=== PATIENT | male | born 1950 | race Caucasian/White ===

== ENCOUNTER 2024-06-14 19:54 | Inpatient (IN) | payer MEDICARE, SELFPAY ==
[2024-06-14 19:54] VITALS: BMI 24.2
[2024-06-14 21:29] VITALS: BP 137/72; PULSE 72; RESP 20; TEMP 36.9; O2SAT 95
--- NOTE | 2024-06-14 21:41 | XR_ITS ---
Examination: Abdomen sonogram, Limited Date and time of exam: June 14, 2024 10:33 PM Indications: Elevated liver function tests on laboratory examination one month ago Technique: Real-time pride scale transabdominal sonographic images of the upper abdomen obtained. Findings: Normal gallbladder. Normal common bile duct 0.4 cm. Pancreatic head 2.8 cm Liver enlarged 18.8 cm with vascular right lobe liver lesion 16.5 x 15.3 x 16.9 cm Normal hepatopedal portal venous flow Patent IVC Impression: Normal gallbladder Recommend MRI abdomen liver follow-up to assess large right lobe liver lesion
--- NOTE | 2024-06-14 21:41 | PD.EDRME ---
Rapid Medical Screening Exam RME Arrival date/time: 06/14/24 19:54 74 year old male present to ED for c/o of abnormal labs. low hgb and elevated liver enzyme I have greeted and performed a focused initial assessment of this patient. A comprehensive ED assessment and evaluation of the patient, analysis of all test results, and completion of the medical decision making process will be conducted by additional ED providers. Chief Complaint: Recheck/Abnormal Lab/Rx Time Seen by Provider: 06/14/24 21:17 Vital signs: Vital Signs Temperature 98.4 F 06/14/24 21:29 Pulse Rate 72 06/14/24 21:29 Respiratory Rate 20 06/14/24 21:29 Blood Pressure 137/72 H 06/14/24 21:29 Pulse Oximetry (%) 95 06/14/24 21:29 Oxygen Delivery Method Room Air 06/14/24 21:29
[2024-06-14 22:12] LABS: Basophils # (Auto) 0.1 Thou/mm3 (0.0-0.2); Basophils % (Auto) 1 % (0-2.5); Eosinophils # (Auto) 0.4 Thou/mm3 (0.0-0.5); Eosinophils % (Auto) 4 % (0-10); Immature Granulocytes % (Auto) 1 % (0-0); Immature Granulocytes Auto 0.13 Thou/mm3 (0.00-0.00); Lymphocytes # (Auto) 1.6 Thou/mm3 (1.0-4.8); Lymphocytes % (Auto) 18 % (10-50); Mean Corpuscular HGB Conc 30.5 g/dl (31.0-37.0); Mean Corpuscular Hemoglobin 22.7 pg (25.0-35.0); Mean Corpuscular Volume 75 fL (80-100); Monocytes # (Auto) 0.6 Thou/mm3 (0.0-0.8); Monocytes % (Auto) 6 % (0-12); Neutrophils # (Auto) 6.3 Thou/mm3 (1.8-7.7); Neutrophils % (Auto) 70 % (37-80); Nucleated Red Blood Cell % 0 /100 WBC (0); Platelet Count 463 Thou/mm3 (140-440); RDW Standard Deviation 50.8 fL (35.1-43.9); Red Blood Count 2.82 Miln/mm3 (4.50-5.90)
[2024-06-14 22:28] LABS: Hemoglobin 6.4 g/dL (13.5-16.0)
[2024-06-14 22:35] LABS: INR 1.2 (0.9-1.3); Prothrombin Time 12.6 Seconds (9.0-12.2)
[2024-06-14 22:47] LABS: Alanine Aminotransferase 57 U/L (10-49); Albumin/Globulin Ratio 1.5 (1.2-2.2); Alkaline Phosphatase 697 U/L (46-116); Anion Gap 11 (7-16); Aspartate Amino Transferase 77 U/L (0-34); BUN/Creatinine Ratio 32 Ratio (12-20); Bilirubin,Total 0.4 mg/dL (0.3-1.2); Blood Urea Nitrogen 81 mg/dL (9-23); Calcium 10.4 mg/dL (8.3-10.6); Calcium (Corrected) 10.4 mg/dL (8.5-10.1); Carbon Dioxide 17.1 mMol/L (20.0-31.0); Chloride 110 mMol/L (98-107); Creatinine (Component) 2.5 mg/dL (0.6-1.3); Globulin 3.4 gm/dL (2.3-3.5); Glucose 104 mg/dL (74-106); Lipase 122 U/L (12-53); Osmolality,Calculated 300 (275-295); Potassium 5.9 mMol/L (3.4-5.1); Sodium 138 mMol/L (136-145); Total Protein 8.4 gm/dL (5.7-8.2); eGFR 26 See Note
[2024-06-15] VITALS (19 sets, daily range): BP systolic 124–170; BP diastolic 60–101; PULSE 60–72; RESP 15–100; TEMP 36.2–37.2; O2SAT 65–100; BMI 24.2
--- NOTE | 2024-06-15 | XR_ITS ---
MRI abdomen, without contrast. MRCP Date and time of exam: June 15, 2024 0809 hours INDICATIONS: Elevated alkaline phosphatase on laboratory examination performed one month ago Technique: Multiple axial and coronal images of the abdomen have been obtained with the Siemens 1.5T MRI scanner. Images obtained included T1 weighted transverse images, T2-weighted transverse images, T2-weighted transverse images fat-suppressed, T2 weighted haste fat suppressed transverse images, T1 weighted images, in and out of phase images, T2-weighted coronal images, breath hold, T2 weighted haze coronal images as well as T2 weighted coronal thick slab images, MRCP. Findings: Cirrhosis, liver nodular in contour The right lobe of the liver is replaced by a large irregular heterogeneous signal mass at least 15 x 17 cm There is no diagnostic visualization of the extrahepatic biliary system The spleen is not enlarged No pancreatic mass or dilated pancreatic duct No hydronephrosis Small gallstones, gallbladder wall is not thickened No hydronephrosis No ascites IMPRESSION: Cirrhosis The right lobe of the liver is replaced by large irregular mass at least 15 x 17 cm, differential would include primary hepatocellular carcinoma, hepatic metastasis
--- NOTE | 2024-06-15 01:23 | EDNOTE_ITS ---
ED Recheck Abnl Lab Rx-RME/HPI General Chief Complaint: Recheck/Abnormal Lab/Rx Stated Complaint: SENT BY PCP FOR ABN LABS Time Seen by Provider: 06/14/24 21:17 Arrival date/time: 06/14/24 19:54 RME / HPI RME / HPI narrative: 06/14/24 19:54 74 year old male present to ED for c/o of abnormal labs. low hgb and elevated liver enzyme I have greeted and performed a focused initial assessment of this patient. A comprehensive ED assessment and evaluation of the patient, analysis of all test results, and completion of the medical decision making process will be conducted by additional ED providers. Dr. Penn?s Main ED Evaluation: 74yo male with a history of dementia, HTN presents to the ED for a chief complaint of abnormal labs. Patient states he gets frequent nose bleeds every 5 days. Patient states he was told today that his hemoglobin was low and his LFTs are elevated, so he came in for evaluation. Patient reports having nausea, brain fog , and a decreased appetite. Patient denies any hematemesis, bloody/black stools or any other associated symptoms. Related Data Home Medications ?Medication ?Instructions ?Recorded ?Confirmed chlorthalidone 50 mg tablet 50 mg PO QDAY 06/16/24 ergocalciferol (vitamin D2) 1,250 1,250 mcg PO QWEEK 0 06/16/24 06/16/24 mcg (50,000 unit) capsule losartan 100 mg tablet 100 mg PO QDAY 06/16/2405/26 memantine 10 mg tablet 10 mg PO HS 06/16/24 5 nifedipine 30 mg tablet,extended 30 mg PO QDAY 5 06/16/24 release trazodone 100 mg tablet 100 mg PO HS 06/16/24 Allergies Allergy/AdvReac Type Severity Reaction Status Date / Time No Known Allergies Allergy Verified 06/14/24 19:56 Review of Systems Review of Systems Systems Reviewed: All systems reviewed, normal except as documented ED Exam Narrative Physical exam: GENERAL APPEARANCE: alert and oriented x 4, well-developed, well-nourished, no acute distress VITALS: All vitals were reviewed and the pulse ox is 100% on room air, which is normal according to my interpretation. HEENT: Normocephalic, atraumatic; pupils equal, round, reactive to light; EOMI; mucous membranes pink, moist; oropharynx clear NECK: Supple LUNGS: CTABL; no wheezes, no rales, no rhonchi HEART: Regular rate, regular rhythm; normal S1, S2; no murmurs ABDOMEN: non distended; normal BS; soft, no tenderness, no guarding, no rebound; no masses, no organomegaly, no hernia BACK: no CVA tenderness EXTREMITIES: atraumatic; no edema NEUROLOGIC: awake; alert and oriented x4; cranial nerves II-XII grossly intact; no focal sensory or motor deficits PSYCHIATRIC: appropriate mood and affect SKIN: warm, dry, normal color; no rashes Course Quality Measures none Orders Category Date Time Status COVID-19 Screening Questionnaire NOW Care 06/15/24 10:51 Active User Experience Lead Q4H START 00 Care 06/15/24 01:26 Completed Continuous Pulse Oximetry NOW Care 06/15/24 01:26 Completed Decision to Admit X1 Care 06/15/24 10:51 Completed EKG (ED ONLY) *Do not use* NOW Care 06/15/24 10:56 Completed MRI Screening NOW Care 06/15/24 01:25 Active Transfuse,blood/blood products ONCE Care 06/15/24 00:04 Active EKG (ED Only) Stat Exams 06/15/24 10:56 Draft MR MRCP Stat Exams 06/15/24 Completed US abdomen limited Stat Exams 06/14/24 21:41 Completed CBC Stat Lab 06/14/24 21:50 Completed CBC Stat Lab 06/15/24 11:12 Completed CMP [Comprehensive Metabolic Panel] Stat Lab 06/14/24 21:50 Completed CMP [Comprehensive Metabolic Panel] Stat Lab 06/15/24 11:12 Completed Lipase Stat Lab 06/14/24 21:50 Completed Path Review Blood Smear Stat Lab 06/14/24 21:50 Completed Prothrombin Time with INR Stat Lab 06/14/24 21:50 Completed Type and Screen Stat Lab 06/14/24 21:50 Results prbc [Red Blood Cells] Stat Lab 06/15/24 00:04 Results Vital Signs Vital signs: Vital Signs Temperature 98.4 F 06/14/24 21:29 Pulse Rate 72 06/14/24 21:29 Respiratory Rate 20 06/14/24 21:29 Blood Pressure 137/72 H 06/14/24 21:29 Pulse Oximetry (%) 95 06/14/24 21:29 Oxygen Delivery Method Room Air 06/14/24 21:29 Recheck / Abnormal Lab / Rx MDM Narrative MDM Narrative:: Scribe Attestation: 06/15/24 - Rhonda Moncada am scribing for and in the presence of Dr. Penn. The patient was placed in ED observation care at 06/15/24 at 0230 hours. The patient was placed in ED observation care because of pending blood transfusion and MRCP in the AM. The patients past medical history, social history, and family history were reviewed. 0600: Care signed out to Dr. Cannon (emergency physician). Past medical, surgica l, social and family history reviewed. Vitals and home medications reviewed. Results and treatment plan discussed. They will assume the care of the patient at this time and will follow the patient, pending MRCP and completion of blood transfusion. At this time, observation has ended. Patient data External records reviewed:: [facility] previous records (Per chart review, patient has no previous ED visits or admissions to this facility.) Clinical information provided by:: patient Social determinants that could affect healthcare access:: none Patient has the following chronic illnesses:: dementia, HTN How is presenting disease/condition affected by chronic disease/condition?: uneffected by Evaluation data The following diagnostics were reviewed and interpreted by me:: lab results and radiology exam(s) Lab and/or radiology exams considered but not ordered:: none Interpretation Summary: WBC count is normal, HnH is low at 6.4/21.0, Potassium is elevated at 5.9, Creatinine is elevated at 2.5, LFTs are elevated, Lipase is 122, according to my interpretation. -------- [place] [facility] Report Signed Patient: DENZEL PEARCE [facility]. Record#: [id number] Birthdate: 1950 Age/Sex: 74 / M Location: [facility] Attending Dr: Ordering Physician: Ranjeet George PA-C Date of Service: 06/14/24 Procedure(s): US abdomen limited Accession Number(s): [id number] cc: iSmone Khan MD; NO PRIMARY/FAMILY,PHYSICIAN; Ranjeet Geogre PA-C~ Examination: Abdomen sonogram, Limited Date and time of exam: June 14, 2024 10:33 PM Indications: Elevated liver function tests on laboratory examination one month ago Technique: Real-time pride scale transabdominal sonographic images of the upper abdomen obtained. Findings: Normal gallbladder. Normal common bile duct 0.4 cm. Pancreatic head 2.8 cm Liver enlarged 18.8 cm with vascular right lobe liver lesion 16.5 x 15.3 x 16.9 cm Normal hepatopedal portal venous flow Patent IVC Impression: Normal gallbladder Recommend MRI abdomen liver follow-up to assess large right lobe liver lesion Dictated By: Simone Khan MD Signed By: <Electronically signed by Simone Khan MD in [place]> 06/14/24 9508 Medications / Prescriptions Medications or Prescriptions considered but not ordered:: none Medication administrations:: Medication Administration History Acetaminophen (Acetaminophen 325 Mg Tablet) 650 mg PO Q6H PRN PRN Reason: Fever >100.3 or pain Stop: 07/15/24 13:18 Sodium Chloride (Ns) 1,000 mls @ 80 mls/hr IV .[id number] ONE Stop: 06/16/24 04:43 Last Admin: 06/15/24 17:38 Dose: 80 mls/hr Documented By: TM Labetalol HCl (Labetalol Inj 5 Mg/Ml Vial 20 Ml) 10 mg IVP Q4H PRN PRN Reason: Hypertension Stop: 07/15/24 15:10 Nifedipine (Nifedipine Xl 30 Mg Tabcr) 30 mg PO DAILY [facility] Stop: 07/15/24 15:14 Last Admin: 06/15/24 17:37 Dose: 30 mg Documented By: TM Ondansetron HCl (Ondansetron Inj 2 Mg/Ml Inj 2 Ml) 4 mg IV Q6H PRN; Protocol PRN Reason: NAUSEA OR VOMITING Stop: 07/15/24 13:18 Pantoprazole Sodium (Pantoprazole 40 Mg Tablet) 40 mg PO QDAY LAUREANO Stop: 07/15/24 15:14 Last Admin: 06/15/24 17:37 Dose: 40 mg Documented By: TM Sennosides (Senna Tablet) 1 tab PO QDAY PRN; Protocol PRN Reason: constipation Stop: 07/15/24 13:18 see above, if any Consultations Consultation(s) initiated? (list below): No Diagnosis Recheck Differential Diagnosis: other (See above) Most likely diagnosis given after review of the tests above:: final dx pending at sign out Admission Indicated Admission indicated?: not indicated Admission Request Was there a request for admission?: No Disposition Plan Disposition Plan: other (specify) (Signed out to Dr. Cannon at 0600 pending MRCP and completion of blood transfusion.) Discharge Plan Plan Patient Disposition: Admit Acute Care w/in Hospital Problem List Clinical Impression: Liver mass, Anemia, Elevated LFTs, Hyperkalemia, NATALIE (acute kidney injury)
[2024-06-15 03:26] LABS: Path Review Blood Smear Sent to Pathologist
--- NOTE | 2024-06-15 06:22 | PD.EDADDENDU ---
Emergency Room Addendum Addendum Narrative: 0600: Care assumed from Dr. Penn, the previous shift emergency physician. Past medical, surgical, social and family history reviewed. Vitals and home medications reviewed. I will assume the care of the patient at this time, pending MRCP and completion of blood transfusion. Please refer to the emergency department record for history and examination from initial visit.? Physical exam by me shows patient under no acute distress at this time. 1319: Discussed test HPI, PMHx, lab, radiology results and/or management with hospitalist. Will admit for further evaluation and management. Accepts patient for admission. Diagnoses: - Large irregular liver mass - Severe anemia - Hyperkalemia - NATALIE RADIOLOGY Procedure(s): MR MRCP Accession Number(s): [id number] cc: Simone Khan MD; NO PRIMARY/FAMILY,PHYSICIAN; David Penn MD~ MRI abdomen, without contrast. MRCP Date and time of exam: June 15, 2024 0809 hours INDICATIONS: Elevated alkaline phosphatase on laboratory examination performed one month ago Technique: Multiple axial and coronal images of the abdomen have been obtained with the Siemens 1.5T MRI scanner. Images obtained included T1 weighted transverse images, T2-weighted transverse images, T2-weighted transverse images fat-suppressed, T2 weighted haste fat suppressed transverse images, T1 weighted images, in and out of phase images, T2-weighted coronal images, breath hold, T2 weighted haze coronal images as well as T2 weighted coronal thick slab images, MRCP. Findings: Cirrhosis, liver nodular in contour The right lobe of the liver is replaced by a large irregular heterogeneous signal mass at least 15 x 17 cm There is no diagnostic visualization of the extrahepatic biliary system The spleen is not enlarged No pancreatic mass or dilated pancreatic duct No hydronephrosis Small gallstones, gallbladder wall is not thickened No hydronephrosis No ascites IMPRESSION: Cirrhosis The right lobe of the liver is replaced by large irregular mass at least 15 x 17 cm, differential would include primary hepatocellular carcinoma, hepatic metastasis Dictated By: Simone Khan MD
--- NOTE | 2024-06-15 07:35 | PC.NURSE ---
Upon assumption of care pt reports that he is feeling much better, denies any pain or discomfort. VSS will continue w/POC.
--- NOTE | 2024-06-15 08:02 | PC.NURSE ---
To MRI at this time
--- NOTE | 2024-06-15 08:39 | PC.NURSE ---
Pt back from MRI at this time
--- NOTE | 2024-06-15 10:56 | EKG_ITS ---
[facility] Test Date: 2024-06-15 Pat Name: DENZEL PEARCE Department: Room: - Gender: Male Contracts Specialist: : 1950 Requested By: Waqas Solorio Order Number: [id number] Reading MD: Waqas Solorio Measurements Intervals [place] Rate: 68 P: 22 MI: 154 QRS: -9 QRSD: 102 T: -4 QT: 384 QTc: 409 Interpretive Statements SINUS RHYTHM WITH MARKED SINUS ARRHYTHMIA MINIMAL VOLTAGE CRITERIA FOR LVH, CONSIDER NORMAL VARIANT [MEETS CRITERIA IN ONE OF: R(aVL), S(V1), R(V5), R(V5/V6)+S(V1)] MODERATE ST DEPRESSION [0.05+ mV ST DEPRESSION] No previous ECG available for comparison /store/S0/[id number]/ecg/[id number].pdf
[2024-06-15 11:29] LABS: Basophils # (Auto) 0.1 Thou/mm3 (0.0-0.2); Basophils % (Auto) 1 % (0-2.5); Eosinophils # (Auto) 0.3 Thou/mm3 (0.0-0.5); Eosinophils % (Auto) 5 % (0-10); Hematocrit 25.7 % (41.0-53.0); Immature Granulocytes % (Auto) 1 % (0-0); Lymphocytes # (Auto) 1.2 Thou/mm3 (1.0-4.8); Lymphocytes % (Auto) 17 % (10-50); Mean Corpuscular HGB Conc 30.7 g/dl (31.0-37.0); Mean Corpuscular Hemoglobin 24.8 pg (25.0-35.0); Mean Corpuscular Volume 81 fL (80-100); Monocytes # (Auto) 0.6 Thou/mm3 (0.0-0.8); Monocytes % (Auto) 8 % (0-12); Neutrophils # (Auto) 5.1 Thou/mm3 (1.8-7.7); Neutrophils % (Auto) 68 % (37-80); Nucleated Red Blood Cell # 0.02 Thou/mm3 (0.00-0.00); Nucleated Red Blood Cell % 0 /100 WBC (0); Platelet Count 342 Thou/mm3 (140-440); RDW Standard Deviation 58.6 fL (35.1-43.9); Red Blood Count 3.19 Miln/mm3 (4.50-5.90); White Blood Count 7.4 Thou/mm3 (3.8-10.6)
[2024-06-15 11:58] LABS: Alanine Aminotransferase 53 U/L (10-49); Albumin, Serum 4.5 gm/dL (3.4-4.8); Albumin/Globulin Ratio 1.4 (1.2-2.2); Alkaline Phosphatase 599 U/L (46-116); Anion Gap 8 (7-16); Aspartate Amino Transferase 79 U/L (0-34); BUN/Creatinine Ratio 34 Ratio (12-20); Bilirubin,Total 0.7 mg/dL (0.3-1.2); Blood Urea Nitrogen 72 mg/dL (9-23); Calcium 9.9 mg/dL (8.3-10.6); Calcium (Corrected) 9.9 mg/dL (8.5-10.1); Carbon Dioxide 16.6 mMol/L (20.0-31.0); Chloride 110 mMol/L (98-107); Creatinine (Component) 2.1 mg/dL (0.6-1.3); Estimated Creatinine Clearance 27.4 mL/min (>60); Globulin 3.2 gm/dL (2.3-3.5); Glucose 88 mg/dL (74-106); Osmolality,Calculated 290 (275-295); Potassium 5.2 mMol/L (3.4-5.1); Sodium 135 mMol/L (136-145); Total Protein 7.7 gm/dL (5.7-8.2); eGFR 32 See Note
[2024-06-15 12:08] LABS: Hemoglobin 7.9 g/dL (13.5-16.0)
--- NOTE | 2024-06-15 13:32 | XR_ITS ---
Examination: CT brain head without contrast. 2-D sagittal coronal reconstructions Date and time of exam:June 20, 2024 1839 hrs. Indications: Diagnosis of hepatocellular carcinoma, altered mental status, staging for cerebral metastases CTDI: vol (mGy):51.5 DLP: (mGycm):1055 Technique: Multiple CT axial sections of the brain have been obtained, 5 mm slice thickness. Contrast has not been administered. 2-D sagittal, coronal reconstructions have been obtained Low dose protocols were performed. One or more of the following dose reduction techniques were used; automated exposure control, adjustment of the mA and/or KV according to patient size, use of iterative reconstruction technique. Findings: No significant ventricular enlargement. Chronic frontal subdural hygromas, 17 mm in thickness on the right side, 6 mm in thickness on the left side at the level of the ventricles No acute hemorrhage No mass effect No cerebral edema Intra-axial or extra-axial hemorrhage density is not seen. No mass effect or midline shift Basal cisterns are not remarkable. Fourth ventricle is midline. Cranial vault intact. Impression: Negative for acute hemorrhage, mass effect or midline shift No focal cerebral edema, however, MRI of brain pre and post contrast follow-up would best assess for early cerebral metastatic disease
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
[2024-06-15] MEDS: NIFEdipine XL 30 MG TABCR PO (17:37)
[2024-06-15] MEDS: PANTOPRAZOLE 40 MG TABLET PO (17:37)
[2024-06-15] MEDS: SODIUM CHLORIDE 0.9% 1000 ML 1,000 ML 80 ML IV (17:38)
--- NOTE | 2024-06-15 18:28 | PC.NURSE ---
SPOKE W/MD WHITE ABOUT 2 ADDITIONAL UNITS THAT HE ORDERED PRIOR TO POST TRANSFUSION HGB RESULTS THAT WERE 7.9. SAID THEY DO NOT NEED THE BLOOD W/THAT HGB.
--- NOTE | 2024-06-15 21:11 | PD.IMCONS ---
HPI Data of Consult Requesting Physician: Leonard Ren MD Primary Care Provider: Physician No Primary/Family Consult Narrative Reason for consult: H/H 6.4/21.0 History of present illness: 74 female brought into the emergency room by the family for not feeling well did not have much of a specific complaint He was found to have a hemoglobin hematocrit 6.4 and 21.0 with a platelet count of 463,000 No history of any sally GI bleeding Abdominal ultrasound showed a liver mass which was confirmed by MRCP which showed the whole right lobe of the liver is replaced by a 15 x 17 cm mass LFTs shows a total bilirubin of 0.7 AST ALT 70 and 53 and alk phos of 599 Patient does have a history of essential hypertension and underlying dementia cc:: cc: Leonard Ren MD Review of Systems Review of Systems ROS Unobtainable: unobtainable due to medical condition Past Medical History Surgical History OTHER SURGICAL HX: As in the history of present illness Meds Home Medications and Allergies Allergies Allergy/AdvReac Type Severity Reaction Status Date / Time No Known Allergies Allergy Verified 06/14/24 19:56 Exam Vital Signs Temp Pulse Resp BP Pulse Ox O2 Del Method 98.0 F 65 18 168/69 H 98 Room Air 06/15/24 18:23 06/15/24 18:23 06/15/24 18:23 06/15/24 18:23 06/15/24 18:23 06/15/24 18:23 Constitutional Comments: Chronically ill-appearing Routine Respiratory Exam Comments: Normal to auscultation Routine Abdominal Exam Comments: Right upper quadrant fullness positive bowel sounds Results Labs 06/15/24 11:12 06/15/24 11:12 Labs: Short CBC 06/14/24 06/15/24 Range/Units 21:50 11:12 WBC 9.0 7.4 (3.8-10.6) Thou/mm3 Hgb 6.4 L* 7.9 L D (13.5-16.0) g/dL Hct 21.0 L* 25.7 L (41.0-53.0) % Plt Count 463 H 342 D (140-440) Thou/mm3 BMP 06/14/24 06/15/24 21:50 11:12 Sodium 138 135 L Potassium 5.9 H 5.2 H D Chloride 110 H 110 H Carbon Dioxide 17.1 L 16.6 L BUN 81 H 72 H Creatinine 2.5 H 2.1 H Glucose 104 88 Calcium 10.4 9.9 Liver Function 06/14/24 06/15/24 Range/Units 21:50 11:12 Total Bilirubin 0.4 0.7 (0.3-1.2) mg/dL AST 77 H 79 H (0-34) U/L ALT 57 H 53 H (10-49) U/L Alkaline Phosphatase 697 H 599 H D (46-116) U/L Albumin 5.0 H 4.5 D (3.4-4.8) gm/dL Assessment and Plan Additional Assessment & Plan Additional Plan: # Anemia most likely anemia blood loss Agree with the blood transfusion Consent obtained for fiberoptic esophagogastroduodenoscopy with possible biopsy possible therapeutic intervention under intravenous moderate sedation Scheduled for tomorrow Clear liquid diet till 10 AM tomorrow then n.p.o. except p.o. meds # Right lobe liver mass primary hepatocellular carcinoma versus metastatic disease AFP CEA level CA 19?9 level Ultrasound-guided biopsy of the liver mass prior to discharge Oncology on board # Dementia Thank you very much for the opportunity to participate in the care of this patient
--- NOTE | 2024-06-15 21:51 | PC.NURSE ---
seen and examined by Dr. Ovidio plaza/ orders made and carried out.
[2024-06-15 23:17] LABS: Carcinoembryonic Antigen 2.4 ng/mL (0.0-5.0)
[2024-06-16] VITALS (26 sets, daily range): BP systolic 109–150; BP diastolic 61–75; PULSE 51–70; RESP 12–99; TEMP 36.2–36.9; O2SAT 94–100; BMI 24.0
[2024-06-16 06:27] LABS: Basophils # (Auto) 0.1 Thou/mm3 (0.0-0.2); Basophils % (Auto) 1 % (0-2.5); Eosinophils # (Auto) 0.4 Thou/mm3 (0.0-0.5); Eosinophils % (Auto) 6 % (0-10); Immature Granulocytes % (Auto) 1 % (0-0); Immature Granulocytes Auto 0.06 Thou/mm3 (0.00-0.00); Lymphocytes # (Auto) 1.2 Thou/mm3 (1.0-4.8); Lymphocytes % (Auto) 17 % (10-50); Mean Corpuscular HGB Conc 30.8 g/dl (31.0-37.0); Mean Corpuscular Volume 81 fL (80-100); Monocytes # (Auto) 0.6 Thou/mm3 (0.0-0.8); Monocytes % (Auto) 8 % (0-12); Neutrophils # (Auto) 5.1 Thou/mm3 (1.8-7.7); Neutrophils % (Auto) 69 % (37-80); Nucleated Red Blood Cell % 0 /100 WBC (0); Platelet Count 343 Thou/mm3 (140-440); RDW Standard Deviation 60.6 fL (35.1-43.9); White Blood Count 7.5 Thou/mm3 (3.8-10.6)
[2024-06-16 07:15] LABS: Alanine Aminotransferase 55 U/L (10-49); Albumin, Serum 4.4 gm/dL (3.4-4.8); Albumin/Globulin Ratio 1.4 (1.2-2.2); Alkaline Phosphatase 648 U/L (46-116); Anion Gap 13 (7-16); Aspartate Amino Transferase 95 U/L (0-34); BUN/Creatinine Ratio 32 Ratio (12-20); Bilirubin,Total 0.5 mg/dL (0.3-1.2); Blood Urea Nitrogen 61 mg/dL (9-23); Calcium 9.5 mg/dL (8.3-10.6); Calcium (Corrected) 9.5 mg/dL (8.5-10.1); Cardiac Risk Estimate 4.3 RATIO (4.0-6.7); Chloride 114 mMol/L (98-107); Cholesterol 111 mg/dL (132-200); Creatinine (Component) 1.9 mg/dL (0.6-1.3); Estimated Creatinine Clearance 30.3 mL/min (>60); Globulin 3.2 gm/dL (2.3-3.5); Glucose 93 mg/dL (74-106); HDL Cholesterol 26 mg/dL (40-60); LDL Cholesterol,Calculated 64 mg/dL (0-130); Magnesium 2.2 mg/dL (1.6-2.6); Osmolality,Calculated 298 (275-295); Phosphorous 4.7 mg/dL (2.4-5.1); Potassium 5.2 mMol/L (3.4-5.1); Sodium 141 mMol/L (136-145); Thyroid Stimulating Hormone 2.44 uIU/mL (0.55-4.78); Total Protein 7.6 gm/dL (5.7-8.2); Triglycerides 104 mg/dL (30-150); eGFR 36 See Note
[2024-06-16 07:23] LABS: Carbon Dioxide 13.8 mMol/L (20.0-31.0)
--- NOTE | 2024-06-16 07:27 | PC.NURSE ---
MD called to report CO2 critically low lab, MD is responding to Rapid response and told RN they will return call, no new orders.
[2024-06-16] MEDS: SODIUM BICARBONATE 650 MG TABLET 325 MG PO ×2 (08:33→20:16)
[2024-06-16] MEDS: PANTOPRAZOLE 40 MG TABLET PO ×2 (08:33→20:16)
[2024-06-16] MEDS: NIFEdipine XL 30 MG TABCR PO (08:33)
[2024-06-16] MEDS: SOD POLYSTYRENE SULFON SUSP 15 GM/60 ML BTL 30 GM PO (09:38)
--- NOTE | 2024-06-16 12:20 | PC.NURSE ---
Pt. taken to custodial laborer, via milla with staff.
--- NOTE | 2024-06-16 13:02 | XR_ITS ---
Examination: CT-guided percutaneous biopsy right lobe liver lesion CT abdomen without intravenous contrast Date and time of procedure: June 16, 2024 1346 hours INDICATIONS: 15 x 17 mm vascular mass replacing the right lobe of the liver on MR CP June 15, 2024 Informed consent provided. A timeout was completed verifying correct patient, procedure, site and positioning. Technique: Axial 3 mm sections were obtained for localization of the large right lobe liver mass Appropriate area is marked. The patient's site was prepped and draped in sterile fashion Maximal sterile barrier technique utilized, including hand hygiene Local anesthesia was obtained with 1% lidocaine. Low dose protocols were performed. One or more of the following dose reduction techniques were used; automated exposure control, adjustment of the mA and/or KV according to patient size, use of iterative reconstruction technique. Utilizing CT fluoroscopic guidance 2 18-gauge core needle biopsies obtained of the right lobe liver mass Patient appears in stable condition during this procedure. At completion of the procedure, the patient is in satisfactory condition. Estimated blood loss 0 cc Complete pathology report to follow. Impression: Successful CT-guided percutaneous biopsy large right lobe liver lesion
[2024-06-16 13:23] LABS: INR 1.2 (0.9-1.3); Partial Thromboplastin Time 36.8 Seconds (22.0-36.0)
[2024-06-16] MEDS: fentaNYL CIT INJ 50 mCg/ML AMP 2ML 25 MCG IVP (14:10)
--- NOTE | 2024-06-16 14:44 | PC.NURSE ---
1425 patient is awake, alert, breathing unlabored, s/p liver biopsy, dressing dry with no bleeding, patient transferred back to room 376, bedside report given to Janneth ABAD,
--- NOTE | 2024-06-16 16:32 | PC.SS ---
Rounding note: Pt has a liver mass, currently in IR having a Biopsy at this time. No d/c date at this time. CECILIO Stewart attempted to complete an initial assessment with the pt, but pt was in surgery.
--- NOTE | 2024-06-16 17:09 | ESPR_ITS ---
<Statement entered by Waqas Solorio MD - 06/17/24 14:32> I discussed with and supervised the marketing intern physician involved in the care of this patient. Patient assessment and plan was discussed with entire medicine team, including my attending. I agree with the assessment and plan as documented by marketing intern doctor. Patient care was discussed with my attending physician Dr. Gela Solorio, PGY-2 Documentation for date of: 06/16/24 Subjective Subjective Interval history: Patient examined at bedside. No events overnight, patient has no major complaints. Has a good appetite. Vitals are stable, hemoglobin stable at 8, potassium 5.2, non anion gap metabolic acidosis with bicarb 13, NATALIE is improved with creatinine 1.9 after fluids yesterday. Started patient on oral sodium bicarbonate 325mg BID and will continue to monitor. Possible that normal saline worsened patient's acidosis. Will continue lactated Ringer for any fluids needed. EGD pending to rule out upper GI bleed. Oncology was consulted and patient to get biopsy of liver to rule out hepatocellular carcinoma. Monitor electrolytes, may order MRI of head with contrast if cr cl improves. Exam Vital Signs Temp Pulse Resp BP Pulse Ox O2 Del Method O2 Flow Rate 98.0 F 63 16 140/69 H 99 Room Air 3 06/16/24 16:00 06/16/24 16:00 06/16/24 16:00 06/16/24 16:00 06/16/24 16:00 06/16/24 16:00 06/16/24 14:15 Narrative Exam General: Elderly male, sometimes confused, No acute distress, cooperative HEENT: NCAT, No JVD noted. Mucosa dry. Pupils are equal and reactive to light bilaterally, no icterus Cardiovascular: Normal S1 and S2. Regular rate and rhythm. Respiratory: Lungs are clear to auscultation bilaterally. No wheezing or crackles heard. Abdomen: Soft, nontender, distended, normal bowel sounds, hepatomegaly noted on exam, no jaundice. Skin: Warm to touch, dry, no rashes noted Musculoskeletal: No gross injuries. Able to move all 4 extremities. No pitting edema Neuro: Alert and oriented x3. No focal neuro deficits. Psych: Normal affect and mood Objective Labs 06/16/24 05:32 06/16/24 05:32 Labs: Laboratory Results - last 24 hr 06/15/24 06/15/24 06/16/24 11:12 22:16 05:32 WBC 7.5 RBC 3.20 L Hgb 8.0 L Hct 26.0 L MCV 81 MCH 25.0 MCHC 30.8 L RDW Std Deviation 60.6 H Plt Count 343 Neut % (Auto) 69 Lymph % (Auto) 17 Holmes % (Auto) 8 Eos % (Auto) 6 Baso % (Auto) 1 Neut # (Auto) 5.1 Lymph # (Auto) 1.2 Holmes # (Auto) 0.6 Eos # (Auto) 0.4 Baso # (Auto) 0.1 Immature Gran # (Auto) 0.06 H Absolute Nucleated RBC 0.00 Immature Gran % 1 H Nucleated RBC % 0 PT 13.0 H INR 1.2 APTT 36.8 H Sodium 141 Potassium 5.2 H Chloride 114 H Carbon Dioxide 13.8 L* Anion Gap 13 BUN 61 H Creatinine 1.9 H Estim Creat Clear Calc 30.3 L eGFR 36 L BUN/Creatinine Ratio 32 H Glucose 93 Calculated Osmolality 298 H Calcium 9.5 Corrected Calcium 9.5 Phosphorus 4.7 Magnesium 2.2 Total Bilirubin 0.5 AST 95 H ALT 55 H Alkaline Phosphatase 648 H D Total Protein 7.6 Albumin 4.4 Globulin 3.2 Albumin/Globulin Ratio 1.4 Triglycerides 104 Cholesterol 111 L LDL Cholesterol, Calc 64 HDL Cholesterol 26 L Cholesterol/HDL Ratio 4.3 Tumor Marker AFP 6.80 Carcinoembryonic Ag 2.0 2.4 TSH 2.44 Quality Measures Quality Measures none Advance care planning discussed with:: patient Assessment & Plan Assessment Current Active Medications: Generic Name Dose Route Start Last Admin Trade Name Freq PRN Reason Stop Dose Admin Acetaminophen 650 mg 06/15/24 13:19 Acetaminophen 325 Mg Tablet PO 07/15/24 13:18 Q6H PRN Fever >100.3 or pain Labetalol HCl 10 mg 06/15/24 15:11 Labetalol Inj 5 Mg/Ml Vial 20 Ml IVP 07/15/24 15:10 Q4H PRN Hypertension Nifedipine 30 mg 06/15/24 15:15 06/16/24 08:33 Nifedipine Xl 30 Mg Tabcr PO 07/15/24 15:14 30 mg DAILY LAUREANO Administration Ondansetron HCl 4 mg 06/15/24 13:19 Ondansetron Inj 2 Mg/Ml Inj 2 Ml IV 07/15/24 13:18 Q6H PRN NAUSEA OR VOMITING Protocol Pantoprazole Sodium 40 mg 06/15/24 15:15 06/16/24 08:33 Pantoprazole 40 Mg Tablet PO 07/15/24 15:14 40 mg QDAY LAUREANO Administration Pharmacy Consult 1 each 06/16/24 04:20 Pharmacy To Consult Patient XX 07/16/24 04:19 PRN PRN CONSULT Pharmacy Consult 1 each 06/16/24 04:20 Pharmacy To Consult Pneumovacc XX 07/16/24 04:19 PRN PRN CONSULT Pneumococcal Polyvalent Vaccine 0.5 ml 06/17/24 09:00 Pneumoc 20-Silvina Conj-Dip Crm/Pf 0.5 Ml Syringe IMi 06/17/24 09:01 .ONCE ONE Sennosides 1 tab 06/15/24 13:19 Senna Tablet PO 07/15/24 13:18 QDAY PRN constipation Protocol Sodium Bicarbonate 325 mg 06/16/24 09:00 06/16/24 08:33 Sodium Bicarbonate 650 Mg Tablet PO 06/19/24 08:59 325 mg BID [facility] Administration Plan Anup Drake is 74 yr male with PMH of hypertension, early stages of dementia, active smoker who was told to come to ED from PCP. Patient is poor historian stating that he has come for unknown reason. Possibly due to episodes of dizziness. He has lost approximately 50 pounds in the past 2 months, decreased appetite. Patient admitted for management of possible GI bleed, NATALIE, hyperkalemia, anemia, and liver mass. GI and oncology were consulted. #workup upper GI bleed #Microcytic anemia Hb on admission 6.4, Hct 21.0. Was given 2 units pRBC in ED with improvement. Also endorses significant weight loss 50 pounds over the past 2 months. Decreased appetite. Denies any blood in the stool. Cannot recall if he has ever had any workup in the past including colonoscopy or EGD. MCV 75 indicating normocytic anemia--blood loss anemia or cancer. -GI consulted, possible EGD or colonsocopy -Pantoprazole 40 mg daily -Zofran PRN -daily CBC -transfuse is Hb <7 #NATALIE Cr 2.5, BUN 81, GFR 23, BUN/Cr 32. There is no baseline to compare to. Based off of BUN/creatinine ratio, greater than 20--indicating pre renal etiology. Most likely dehydration. -maintenance fluids -avoid nephrotoxic agents -daily CMP #Hyperkalemia Potassium 5.9 on admission, no EKG changes. Potassium autocorrected while in ED. He did not get any potassium lowering agents. -continue to monitor -hold potassium sparing agents -kayexlate x1 #NAG Metabolic acidosis Normal anion gap, bicarb 17. No evidence of infection, no history of diabetes. No diarrhea, no medications inducing acidosis, less likely RTA 1,2 as potassium was high. -PO sodium bicarb 325mg BID -continue to monitor -fluids -PO sodium bicarb if no improvement #Liver mass Admission AST 77, ALT 57, ALP 697. Possibly primary HCC vs mets to liver. Right lobe of the liver is replaced by a large irregular heterogeneous signal mass at least 15 x 17 cm seen on MRCP. Patient does no appear to be aware of mass. No previous imaging to compare to. Small stones seen in gallbladder, no obstruction in CBD. -Dr. Ortiz oncology consulted for possible biospy -biopsy taken today -CT head pending -daily labs -will need to follow up with PCP/oncology after discharge -may order MRI of head with contrast if cr cl improves. #hx HTN #Hx dementia Unsure of home medications. Med rec is pending -started nifedipine 30mg daily - Labetalol 10 mg Q4hr PRN if SBP <170 Health maintenance: Dispo: med surg, GI bleed, liver mass workup FEN: regular DVT prophylaxis: not indicated due to bleed CODE STATUS: Full code The patient's management plan was discussed with my attending physician Dr. Ren. Karla Go, PGY-1 Attending Provider Attestation/Addendum 74-year-old male patient admitted for GI bleed. Patient was found to have liver mass. He has NATALIE, metabolic acidosis and hyperkalemia. CT-guided liver biopsy scheduled for today. MRI of the brain requested to evaluate for INDEPENDENT PRODUCER metastasis. Discussed with housestaff
--- NOTE | 2024-06-16 19:30 | SUR.PHASEI ---
1929 Report received from Yudi ABAD
--- NOTE | 2024-06-16 19:44 | SUR.PHASEI ---
1943 Patient drinking water; tolerating well
--- NOTE | 2024-06-16 20:02 | SUR.PHASEI ---
1957 Report given to Jose Luis ABAD, patient meets discharge criteria from recovery, awake and alert, breathing unlabored, vital signs stable, denies pain, eating jello; tolerating well, denies nausea 2001 Patient transported via gurney to room [facility] without incident, patient able to transfer himself from the gurney to bed, Jose Luis ABAD promptly in patient room, patient sitting up in bed eating jello with Jose Luis ABAD at beside when this repairer typewriter left patient room
--- NOTE | 2024-06-16 20:10 | PC.NURSE ---
Pt back in the room from EGD Procedure.
[2024-06-17] VITALS: BP 109/58; PULSE 67; RESP 17; TEMP 36.1; O2SAT 99
[2024-06-17 04:00] VITALS: BP 132/74; PULSE 74; RESP 19; TEMP 36.1; O2SAT 97
[2024-06-17 06:02] LABS: Basophils # (Auto) 0.1 Thou/mm3 (0.0-0.2); Basophils % (Auto) 1 % (0-2.5); Eosinophils # (Auto) 0.4 Thou/mm3 (0.0-0.5); Eosinophils % (Auto) 5 % (0-10); Immature Granulocytes % (Auto) 1 % (0-0); Immature Granulocytes Auto 0.07 Thou/mm3 (0.00-0.00); Lymphocytes # (Auto) 1.4 Thou/mm3 (1.0-4.8); Lymphocytes % (Auto) 19 % (10-50); Mean Corpuscular HGB Conc 30.4 g/dl (31.0-37.0); Mean Corpuscular Hemoglobin 24.3 pg (25.0-35.0); Mean Corpuscular Volume 80 fL (80-100); Monocytes # (Auto) 0.6 Thou/mm3 (0.0-0.8); Monocytes % (Auto) 8 % (0-12); Neutrophils # (Auto) 4.8 Thou/mm3 (1.8-7.7); Neutrophils % (Auto) 66 % (37-80); Nucleated Red Blood Cell % 0 /100 WBC (0); Platelet Count 334 Thou/mm3 (140-440); RDW Standard Deviation 61.5 fL (35.1-43.9); Red Blood Count 3.13 Miln/mm3 (4.50-5.90); White Blood Count 7.2 Thou/mm3 (3.8-10.6)
[2024-06-17 06:05] LABS: Hemoglobin 7.6 g/dL (13.5-16.0)
[2024-06-17 06:29] LABS: Alanine Aminotransferase 48 U/L (10-49); Albumin, Serum 4.2 gm/dL (3.4-4.8); Albumin/Globulin Ratio 1.3 (1.2-2.2); Alkaline Phosphatase 604 U/L (46-116); Anion Gap 11 (7-16); Aspartate Amino Transferase 70 U/L (0-34); BUN/Creatinine Ratio 28 Ratio (12-20); Bilirubin,Total 0.6 mg/dL (0.3-1.2); Blood Urea Nitrogen 56 mg/dL (9-23); Calcium 9.4 mg/dL (8.3-10.6); Calcium (Corrected) 9.4 mg/dL (8.5-10.1); Carbon Dioxide 16.5 mMol/L (20.0-31.0); Chloride 113 mMol/L (98-107); Estimated Creatinine Clearance 28.8 mL/min (>60); Globulin 3.2 gm/dL (2.3-3.5); Glucose 94 mg/dL (74-106); Osmolality,Calculated 294 (275-295); Potassium 4.5 mMol/L (3.4-5.1); Sodium 140 mMol/L (136-145); Total Protein 7.4 gm/dL (5.7-8.2); eGFR 34 See Note
[2024-06-17 07:37] VITALS: BP 132/78; PULSE 60; RESP 19; TEMP 36.7; O2SAT 99
[2024-06-17 08:05] VITALS: BP 132/78; PULSE 60
[2024-06-17] MEDS: NIFEdipine XL 30 MG TABCR PO (08:05)
[2024-06-17] MEDS: PANTOPRAZOLE 40 MG TABLET PO (08:06)
[2024-06-17] MEDS: SODIUM BICARBONATE 650 MG TABLET 325 MG PO (08:06)
[2024-06-17 08:09] VITALS: PULSE 53; RESP 18; RESP 99
--- NOTE | 2024-06-17 10:09 | PC.SS ---
CECILIO Stewart met with pt at bedside and informed pt that the plan is for him to d/c today. Pt reported he has a friend named Andrews Phillip to assist him at home with his needs and possibly to provide transportation home if need be. However, it should be noted that pt stated he wants to drive himself home as he arrived to the ER in his vehicle and does not want to leave his vehicle at the hospital. Pt is eager to go home and is ready to leave.
[2024-06-17 12:00] VITALS: BP 138/68; PULSE 64; RESP 20; TEMP 35.9; O2SAT 99
--- NOTE | 2024-06-17 12:08 | ESDS_ITS ---
Planned Discharge Date 06/17/24 DS: Providers Provider Date of admission: 06/15/24 13:19 Primary care physician: Physician No Primary/Family Admitting Provider: Leonard Ren MD Attending Provider on Admission: Leonard Ren MD Consults: 06/15/24 13:23 Consult to Oncology Stat Comment: Liver mass 15 x 17cm Consulting Provider: Willi Ortiz 06/15/24 13:26 Consult to Gastroenterology Routine Comment: r/o upper GI bleed Consulting Provider: Adryan Varela 06/16/24 04:47 Referral Registered Dietitian Routine Comment: Health Equity Referral - Knowledge Deficit Routine Comment: Positive screening for knowledge deficit needs. Health Equity Referral - Transportation Routine Comment: Positive screening for transportation needs. Attending Provider on DC: Leonard Ren MD Discharging Provider: Leonard Ren MD DS: Diagnosis Problem List Completed Was Problem List Reviewed/Reconciled?: Yes Hospital Course Hospital Course Hospital course: Reason for hospitalization: upper GI bleed Anup Drake is 74 yr male with PMH of hypertension, early stages of dementia, active smoker who came to [facility] ED on 06/15/24. He was told to come in by PCP. Patient was poor historian stating that he has come for unknown reason. Possibly due to episodes of dizziness. Per ED,PCP had patient come to the hospital due to lab findings of low hemoglobin, elevated LFTs, and workup for brain fog . GI Dr. Varela was consulted and patient was admitted for workup of GI bleed, NATALIE, and biopsy of liver mass. In ED creatinine 2.5, potassium 5.9, all other electrolytes within limits. Hemoglobin 6.4, hematocrit 21, MCV 75. Abdominal ultrasound showed findings of enlarged liver and was followed up with MRI of abdomen. MRCP showed cirrhosis with large irregular mass 15 x 17 cm in right lobe of the liver. Positive for small gallstones, normal CBD size. Negative for pancreatic mass. Patient was given 2 units PRBC in the ED with repe at H&H improved to 7.9/25. Oncology Dr. Ortiz was consulted for biopsy of liver mass. EGD was completed on 06/16 findings consistent with multiple esophageal ulcers and gastritis. Patient started on pantoprazole 40 mg twice daily. Was recommended to follow-up outpatient for colonoscopy. Liver biopsy was taken 06/16 pathology results are pending. Patient would benefit from family support in the setting of his early dementia. With adequate fluid resuscitation NATALIE resolved with creatinine 2.0. Unsure if this is patient's baseline as there are no previous labs to compare with. Patient is now in stable condition and ready for discharge. Recommendations were given as below. Discharge Recommendations: Resume previous medications. Start taking pantoprazole 40mg twice a day for treatment of peptic ulcers. Take sodium bicarbonate 325mg twice a day to treat acidosis for one more week. Follow up with PCP in 1-2 weeks. See steam hand after having lab work done in 1-2 weeks. See GI doctor in 1-2 weeks. It is recommended that you have a colonoscopy done. Follow up with oncologist to review liver biopsy results. Hospital Diagnoses: #workup upper GI bleed #Microcytic anemia #NATALIE #Hyperkalemia #Metabolic acidosis #Liver mass #hx HTN #Hx dementia The patient's management plan was discussed with my attending physician Dr. Ren. Karla Go MD, PGY-1 Time spent discussing smoking cessation with patient: more than 10 minutes Time Spent with Patient Time attestation: Total time spent providing and/or coordinating discharge services: Time spent: Greater than 30 minutes Exam Vital Signs Temp Pulse Resp BP Pulse Ox O2 Del Method O2 Flow Rate 98.1 F 53 L 18 132/78 H 99 Room Air 3 06/17/24 07:37 06/17/24 08:09 06/17/24 08:09 06/17/24 08:05 06/17/24 07:37 06/17/24 07:37 06/16/24 19:25 Narrative Exam General: Elderly male, sometimes confused, No acute distress, cooperative HEENT: NCAT, No JVD noted. Mucosa dry. Pupils are equal and reactive to light bilaterally, no icterus Cardiovascular: Normal S1 and S2. Regular rate and rhythm. Respiratory: Lungs are clear to auscultation bilaterally. No wheezing or crackles heard. Abdomen: Soft, nontender, distended, normal bowel sounds, hepatomegaly noted on exam, no jaundice. Skin: Warm to touch, dry, no rashes noted Musculoskeletal: No gross injuries. Able to move all 4 extremities. No pitting edema Neuro: Alert and oriented x3. No focal neuro deficits. Psych: Normal affect and mood Discharge Plan Plan Patient Disposition: HOME (Self Care) Patient condition on transfer: Stable Care Plan Goals: Resume previous medications. Start taking pantoprazole 40mg twice a day for treatment of peptic ulcers. Take sodium bicarbonate 325mg twice a day to treat acidosis for one more week. Follow up with PCP in 1-2 weeks. See steam hand after having lab work done in 1-2 weeks. See GI doctor in 1-2 weeks. It is recommended that you have a colonoscopy done. Follow up with oncologist to review liver biopsy results. Prescriptions/Referrals Prescriptions/Med Rec: New sodium bicarbonate 650 mg Tablet 325 mg PO BID 7 Days Qty: 7 0RF pantoprazole 40 mg Tablet,Delayed Release (Dr/Ec) 40 mg PO BID 30 Days Qty: 60 0RF Continued trazodone 100 mg tablet 100 mg PO HS Patient Comments: TAKE 1 TABLET BY MOUTH ONCE DAILY AT BEDTIME ergocalciferol (vitamin D2) 1,250 mcg (50,000 unit) capsule 1,250 mcg PO QWEEK Patient Comments: TAKE 1 CAPSULE BY MOUTH ONCE A WEEK Rx Instructions: Qmonday memantine 10 mg tablet 10 mg PO HS Patient Comments: TAKE 1 TABLET BY MOUTH ONCE DAILY Rx Instructions: was 15mg but decreased dose to 10mg due to passing out. losartan 100 mg tablet 100 mg PO QDAY Patient Comments: TAKE 1 TABLET BY MOUTH ONCE DAILY nifedipine 30 mg tablet extended release 30 mg PO QDAY Patient Comments: TAKE 1 TABLET BY MOUTH ONCE DAILY Discontinued chlorthalidone 50 mg tablet 50 mg PO QDAY Patient Comments: TAKE 1 TABLET BY MOUTH ONCE DAILY IN THE MORNING WITH FOOD Referrals: Karla Go MD [Resident] - Willi Ortiz MD [Physician] - Adryan Varela MD [Physician] - No Primary/Family,Physician [Primary Care Provider] - Marla Tafoya MD [Physician] - Outpatient Orders (i.e. Home Health, Labs, Imaging): Comprehensive Metabolic Panel (Routine) Timeframe: 1 Week Location: Determined by Patient Ordered By: Corbin Lea Patient/Caregiver Discharge Instructions Meds to Beds: No Discharge Activity: activity as tolerated Other Discharge Activity Instructions:: Resume previous medications. Start taking pantoprazole 40mg twice a day for treatment of peptic ulcers. Take sodium bicarbonate 325mg twice a day to treat acidosis. Follow up with primary doctor in 1-2 weeks. See steam hand after having lab work done in 1-2 weeks. See GI doctor in 1-2 weeks. It is recommended that you have a colonoscopy done. Follow up with oncologist to review liver biopsy results. Education Materials: Tests for Liver Disease, Acute Kidney Failure Dc Print Language: Romanian Stand Alone Forms: Alyssa Award Info., Patient Portal Info Letter Discharge Order Discharge Orders: Discharge (Routine); Ordered 06/17/24 Ordered By: Corbin Lea Quality Discharge Quality Measures none MD Attestestation MD Attestation I discussed with and supervised the resident physician who took care of this patient. I agree with the assessment and discharge plan as above. Contact PCP or return to the ER for recurring symptoms.
--- NOTE | 2024-06-17 12:30 | PC.SS ---
CECILIO Stewart completed a face to face biopsychosocial assessment with the pt at bedside. Pt was AOX4. Pt was awake and eating lunch upon arrival, smiling and appeared to be in a good mood. Coremaker Supervisor informed pt that senior writer was present to conduct an assessment and pt understood. Pt reports he lives alone and does not have communication with his adult children and nor does he want them to visit him in the hospital. Pt confirmed his demographics and insurance as medicare, and medicare part A and B. Pt reports he has other family members he keeps in contact with and good friends that help him when he is in need. Pt reports his friend that may possibly provide transportation from the hospital upon d/c is Andrews Kenji but could not provide his phone number as it was stored in his cell phone. Pt reports he ambulates at home with the use of a walker if needed. Pt reports his new PCP will be Dr. Elkins from [facility]. Pt reports he is being referred to a sider mechanic for specialty services. Pt reports he does not have a Power of Development Consultant in place and would have to get back to me regarding if he is a Full Code. Pt reports his pharmacy of choice is [facility] located in [place]. Pt reports he is aware of the biopsy from his liver and understands the severity. Pt reports he has support at home from friends and family. SS concerns: At the time of this writing, there are no SS concerns or worries for the pt. Needs: There are no needs for this pt at this time. Next of Kin: Pt does not list anyone as a Next of Kin or person to contact. D/c plan: Plan is to d/c home today.
[2024-06-17] MEDS: PNEUMOC 20-VAL CONJ-DIP CRM/PF 0.5 ML SYRINGE IMi (13:41)
--- NOTE | 2024-06-17 14:01 | PC.NURSE ---
Pt filled out Discharge paperwork and ready to leave. Patient drove self here and is adamant that he wants to drive himself home. Pt has been AAOX4. Lives at home independently. However, takes memantine for early dementia. Called Dr. Christy to double check if patient should drive self home. Waiting transportation manager back
--- NOTE | 2024-06-17 14:45 | PC.SS ---
Rounding note: Pt will be advised not to drive himself home upon d/c. Concerns are due to the dx of Dementia. Talent Acquisition Sourcer will speak to pt about having his friend pick him up. Pt is ready to d/c today.
--- NOTE | 2024-06-17 14:55 | PC.NURSE ---
Pt found a ride. Will be receiving a ride home.
--- NOTE | 2024-06-17 15:12 | PC.SS ---
Stock Broker Supervisor met with pt and he stated he does have someone to pick him up from upon d/c but does not know when exactley he may show up. Stock Broker Supervisor offered pt a [employer] ride home and pt declined as he stated he would need to go home and get money, then go to [facility] to picker / packer his medications, then the Uber would need to take him back home. Pt reports he feels he is capable of driving himself home, but states the doctor does not feel safe if he drove himself home. Pt reports he will continue to find someone to pick him up from the hospital.
--- NOTE | 2024-06-17 15:16 | PC.SS ---
1515: JENNIFFER Fiore reported that pt informed her he located a friend to pick him up from the hospital and the friend will arrive shortly to come pick him up.
[2024-06-21 06:46] LABS: CA 19-9 Antigen* 13 U/mL (<34)
== END 2024-06-17 15:15 | disposition home or self-care (01) | DRG 435 ==
LOC: SERX 06-15 14:12 → SERHOLD 06-16 06:12 → S3SX 06-16 06:12
PROVIDERS: Internal Medicine; Physician Assistant; Radiology Diagnostic Radiology; Radiology Therapeutic Radiology; Specialist; Admitting Provider Internal Medicine; Emergency Provider Emergency Medicine; Visit Provider Family Medicine
PROC: (CPT 43239; principal; 2024-06-16 19:30)
DX: C22.0 Liver cell carcinoma (principal); K22.11 Ulcer of esophagus with bleeding; K29.71 Gastritis, unspecified, with bleeding; E87.20 Acidosis, unspecified; N17.9 Acute kidney failure, unspecified; D62 Acute posthemorrhagic anemia; F17.210 Nicotine dependence, cigarettes, uncomplicated; I10 Essential (primary) hypertension; F03.90 Unspecified dementia, unspecified severity, without behavioral disturbance, psychotic disturbance, mood disturbance, and anxiety; Z56.0 Unemployment, unspecified; E87.5 Hyperkalemia; K74.60 Unspecified cirrhosis of liver; M54.9 Dorsalgia, unspecified; R63.4 Abnormal weight loss; Z68.24 Body mass index [BMI] 24.0-24.9, adult; E86.0 Dehydration; K80.20 Calculus of gallbladder without cholecystitis without obstruction; Z79.899 Other long term (current) drug therapy
CPT/HCPCS: 36415; 36430; 70450; 76705; 77012; 80053; 80061; 82105; 82378; 83690; 83735; 84100; 84443; 85025; 85610; 85730; 86301; 86850; 86900; 86901; 86923; 90677; 93005; 99285; J1200; J2250; J3010; J7030; P9016; S8037; 74181; A9270

== ENCOUNTER 2024-07-01 12:52 | Outpatient (RCR) | payer MEDICARE, SELFPAY ==
--- NOTE | 2024-07-01 14:44 | CTCFLWUP_ITS ---
[facility] [address] [place], [place] [address] FOLLOW-UP NOTE Date: 07/01/2024 MR#: [id number] Name: DENZEL PEARCE : Dx: C 22 liver cell carcinoma Identification. Patient admitted 3 weeks ago [facility] with elevated alk phos and MRI abdomen without contrast MRCP with large irregular mass at least 15 x 17 cm. Please see inpatient consult June 15 24-year-[address] CT-guided biopsy revealed moderately differentiated hepatocellular carcinoma. Reviewed by [employer] AFP at 6.8 was not elevated CEA 2.4 As I see patient today out of the hospital he appears somewhat tired and a bit jaundiced. Told patient about need to get complete CT scan for staging including chest, repeating of the labs including AFP and having patient see Dr. Espinal medical oncologist. The large size of the liver cancer and his declining condition. makes him unlikely to have locally directed treatment for curative purposes. Electronically signed by: Willi Ortiz M.D. 07/01/2024 2:41 PM
== END 2024-07-24 23:59 | disposition home or self-care (01) ==
LOC: SCTC 12:52
PROVIDERS: PCP Family Medicine; Referring Provider Radiology Therapeutic Radiology; Visit Provider Radiology Therapeutic Radiology
DX: C22.0 Liver cell carcinoma (principal)
CPT/HCPCS: 99213; G0463